=== PATIENT | female | born 1980 | race American Indian/Alaskan Native ===

== ENCOUNTER 2019-05-01 00:21 | Emergency (ER) | payer OTHER ==
[2019-05-01 01:01] LABS: Basophils % (Auto) 0.6 % (0.0-1.8); Eosinophils # (Auto) 0.1 K/mm3 (0.0-0.4); Eosinophils % (Auto) 0.9 % (0.0-4.3); Hematocrit 39.8 % (30.3-42.9); Hemoglobin 13.3 gm/dl (10.1-14.3); Lymphocytes # (Auto) 3.6 K/mm3 (1.2-5.4); Lymphocytes % (Auto) 54.1 % (13.4-35.0); Mean Corpuscular HGB Conc 33 % (30-34); Mean Corpuscular Volume 81 fl (79-97); Monocytes # (Auto) 0.5 K/mm3 (0.0-0.8); Monocytes % (Auto) 7.9 % (0.0-7.3); Platelet Count 268 K/mm3 (140-440); Red Blood Count 4.94 M/mm3 (3.65-5.03); Red Cell Distribution Width 13.6 % (13.2-15.2)
[2019-05-01 01:18] LABS: BUN/Creatinine Ratio 18; Blood Urea Nitrogen 7 mg/dL (7-17); Calcium 9.7 mg/dL (8.4-10.2); Hemolysis Index 25
[2019-05-01] MEDS ORDERED: NACL 0.9% 1000 ML 1,000 ML IV ONE (02:55)
[2019-05-01] MEDS ORDERED: MORPHINE IV ONE (02:55)
--- NOTE | 2019-05-01 04:10 | Emergency Department Report ---
<TASHI BANKS - Last Filed: 05/01/19 06:32> ED GI Bleed HPI - General Chief complaint: GI Bleed Stated complaint: 5 DAYS DIZZINESS BLURRED VISION SHAKING Time Seen by Provider: 05/01/19 02:54 Source: patient, family Mode of arrival: Ambulatory Limitations: No Limitations - History of Present Illness Initial comments: 39-year-old -[place] female presents to the emergency room for dizziness and rectal bleeding rectal pain fatigue 5 days. Patient reports that 2 months ago she started shaking and 2 weeks ago she started falling down patient reports that she has a history of giant cell sacral tumor removed in 2014 now she is having rectal bleeding and rectal pain. Patient admits to nausea vomiting reports pressure in the lower abdomen and back patient pushes took 800 mg of ibuprofen 2 days ago twice that day. She's tried taken Tylenol which she reports is not helping with her pain. Patient states that she sees black spots. MD complaint: melena Onset/Timin -: days(s) Radiation: LLQ, RLQ, suprapubic Severity scale (0 -10): 10 Quality: other (pressure) Consistency: constant Improves with: none Worsens with: bowel movement Context: other (giant cell sacral tumor) Associated Symptoms: abdominal pain, nausea, vomiting, malaise. denies: fever/chills Treatments Prior to Arrival: none - Related Data Previous Rx's Medication Instructions Recorded Last Taken Type Acetaminophen/Codeine [Tylenol 1 tab PO Q4HR PRN #12 tablet 05/01/19 Unknown Rx /Codeine # 3 tab] Nitrofurantoin [place]/M-Cryst 100 mg PO Q12HR #20 capsule 05/01/19 Unknown Rx [Macrobid CAP] Allergies Allergy/AdvReac Type Severity Reaction Status Date / Time No Known Allergies Allergy Unverified 05/01/19 00:28 ED Review of Systems Constitutional: denies: chills, fever Eyes: denies: eye pain, eye discharge, vision change ENT: denies: ear pain, throat pain Respiratory: denies: cough, shortness of breath, wheezing Gastrointestinal: abdominal pain, nausea, vomiting, hematochezia Genitourinary: denies: urgency, dysuria, discharge Musculoskeletal: back pain Neurological: headache ED Past Medical Hx - Past Medical History Previous Medical History?: Yes Additional medical history: ankolitis spondolitis - Surgical History Past Surgical History?: Yes Additional Surgical History: colonoscopy - Social History Smoking Status: Never Smoker Substance Use Type: Alcohol - Medications Home Medications: Home Medications Medication Instructions Recorded Confirmed Last Taken Type Acetaminophen/Codeine [Tylenol 1 tab PO Q4HR PRN #12 tablet 05/01/19 Unknown Rx /Codeine # 3 tab] Nitrofurantoin [place]/M-Cryst 100 mg PO Q12HR #20 capsule 05/01/19 Unknown Rx [Macrobid CAP] ED Physical Exam - General Limitations: No Limitations General appearance: alert, in no apparent distress - Head Head exam: Present: atraumatic, normocephalic - Eye Eye exam: Present: EOMI - ENT ENT exam: Present: mucous membranes moist - Neck Neck exam: Present: normal inspection, full ROM - Respiratory Respiratory exam: Present: normal lung sounds bilaterally. Absent: respiratory distress - Cardiovascular Cardiovascular Exam: Present: normal rhythm, tachycardia. Absent: systolic murmur, diastolic murmur, rubs, gallop - GI/Abdominal GI/Abdominal exam: Present: soft, tenderness. Absent: distended - Rectal Rectal exam: Present: normal inspection, normal rectal tone, heme (+) stool - Extremities Exam Extremities exam: Present: normal inspection, full ROM - Back Exam Back exam: Present: normal inspection, full ROM - Neurological Exam Neurological exam: Present: alert, oriented X3 - Psychiatric Psychiatric exam: Present: normal affect, normal mood - Skin Skin exam: Present: warm, dry, intact, normal color. Absent: rash ED Medical Decision Making - Lab Data Result diagrams: 05/01/19 00:42 05/01/19 00:42 Laboratory Results - last 72 hr 05/01/19 05/01/19 05/01/19 00:42 00:42 00:42 WBC 6.7 RBC 4.94 Hgb 13.3 Hct 39.8 MCV 81 MCH 27 L MCHC 33 RDW 13.6 Plt Count 268 Lymph % (Auto) 54.1 H [place] % (Auto) 7.9 H Eos % (Auto) 0.9 Baso % (Auto) 0.6 Lymph # 3.6 [place] # 0.5 Eos # 0.1 Baso # 0.0 Seg Neutrophils % 36.5 L Seg Neutrophils # 2.4 Sodium 137 Potassium 3.8 Chloride 106.1 Carbon Dioxide 18 L Anion Gap 17 BUN 7 Creatinine 0.4 L Estimated GFR > 60 BUN/Creatinine Ratio 18 Glucose 127 H Calcium 9.7 HCG, Qual Negative - Radiology Data Radiology results: report reviewed Patient: GLADYS BERNAL MR#: [id number] : 1980 Acct:[id number] Age/Sex: 39 / F ADM Date: 05/01/19 Loc: ED Attending Dr: Ordering Physician: BLANCHE MUJICA Date of Service: 05/01/19 Procedure(s): CT abdomen pelvis w con Accession Number(s): [id number] cc: BLANCHE MUJICA PROCEDURE: CT ABDOMEN PELVIS W CON TECHNIQUE: Computerized axial tomography of the abdomen and pelvis was performed after the IV injection of iodinated nonionic contrast. CT DOSE LENGTH PRODUCT: mGycm HISTORY: abd and rectal pain COMPARISONS: None . FINDINGS: Visualized lower thorax: No significant abnormality. Liver: Normal size and attenuation. Spleen: Normal size and attenuation. Gallbladder and biliary system: Normal. Pancreas: Normal. Adrenals: Normal. Kidneys: There are tiny stones in the right kidney. There are no ureteral stones. There is no hydronephrosis.. GI tract: There is no bowel obstruction, colitis or enteritis. There is no abel endicitis. . Lymph nodes and mesentery: Normal. Vasculature: Normal.. Bladder: Normal. Reproductive organs: Uterus is unremarkable. There are involuting cyst in the right ovary measuring up to 2 cm.. Peritoneum: There is minimal free pelvic fluid. There is no free air. There is no abscess or adenopathy.. Musculoskeletal structures: No significant abnormality. IMPRESSION: There are tiny stones in the right kidney. There are no ureteral stones. There is no hydronephrosis.. There is no bowel obstruction, colitis or enteritis. There is no appendicitis. . Uterus is unremarkable. There are involuting cyst in the right ovary measuring up to 2 cm.. There is minimal free pelvic fluid. There is no free air. There is no abscess or adenopathy.. . This document is electronically signed by Ronnie Barton MD., May 01 2019 04:45:04 AM ET Transcribed By: CO Dictated By: RONNIE BARTON MD Electronically Authenticated By: RONNIE BARTON MD Signed Date/Time: 05/01/19 0447 DD/ 4 TD/TT: 05/01/19254 - Medical Decision Making A 9-year-old female comes in for rectal pressure and lower abdomen pressure dizziness nauseated and headache for 5 days. Patient was given a CT with contrast, labs CBC, CMP, TSH, urinalysis have been ordered. Patient's had an IV fluids with normal saline she's had morphine 4 mg IV and then Dilaudid 0.5 mg IV with Zofran. Patient being treated for urinary tract infection discharged on antibiotics which have Macrobid. Patient is to follow-up with her primary care provider listed in her discharge summary. ED Disposition Clinical Impression: UTI (urinary tract infection) Qualifiers: Urinary tract infection type: acute cystitis Disposition: TO HOME OR SELFCARE Is pt being admited?: No Does the pt Need Aspirin: No Condition: Stable Instructions: Urinary Tract Infection in Women (ED) Additional Instructions: Complete your antibiotics as prescribed. Pain medication as needed. Increase her water intake of days she as tolerated. Prescriptions: Nitrofurantoin [place]/M-Cryst [Macrobid CAP] 100 mg PO Q12HR #20 capsule Acetaminophen/Codeine [Tylenol /Codeine # 3 tab] 1 tab PO Q4HR PRN #12 tablet PRN Reason: Pain Referrals: NEVAEH ACE MD [Primary Care Provider] - 3-5 Days Forms: Accompanied Note, Work/School Release Form(ED) <VIRIDIANA CERON - Last Filed: 05/02/19 05:58> ED Review of Systems ROS: Stated complaint: 5 DAYS DIZZINESS BLURRED VISION SHAKING Other details as noted in HPI ED Course Vital Signs 05/01/19 05/01/19 05/01/19 00:29 03:20 03:30 Temperature 98.4 F Pulse Rate 141 H Respiratory 20 18 18 Rate Blood Pressure 152/87 Blood Pressure [Left] O2 Sat by Pulse 100 98 Oximetry 05/01/19 05/01/19 05/01/19 03:50 05:30 05:45 Temperature 98.7 F Pulse Rate 88 Respiratory 18 18 18 Rate Blood Pressure Blood Pressure 142/76 [Left] O2 Sat by Pulse 100 Oximetry 05/01/19 06:15 Temperature Pulse Rate Respiratory 18 Rate Blood Pressure Blood Pressure [Left] O2 Sat by Pulse Oximetry - Reevaluation(s) Reevaluation #1: 05/02/19 05:57 pt will need f/u for thyroid workup. Low TSH suggestive of hyperthyroidism. Instructed provider to contact patient to inform her of results and importance for follow-up. No signs of thyroid storm based on patient's repeat and predischarge vitals. ED Medical Decision Making - Lab Data Result diagrams: 05/01/19 00:42 05/01/19 00:42 Critical care attestation.: If time is entered above; I have spent that time in minutes in the direct care of this critically ill patient, excluding procedure time. ED Disposition Is pt being admited?: No
--- NOTE | 2019-05-01 04:47 | Cat Scan Report ---
PROCEDURE: CT ABDOMEN PELVIS W CON TECHNIQUE: Computerized axial tomography of the abdomen and pelvis was performed after the IV inject ion of iodinated nonionic contrast. CT DOSE LENGTH PRODUCT: mGycm HISTORY: abd and rectal pain COMPARISONS: None . FINDINGS: Visualized lower thorax: No significant abnormality. Liver: Normal size and attenuation. Spleen: Normal size and attenuation. Gallbladder and biliary system: Normal. Pancreas: Normal. Adrenals: Normal. Kidneys: There are tiny stones in the right kidney. There are no ureteral stones. There is no hydrone phrosis.. GI tract: There is no bowel obstruction, colitis or enteritis. There is no appendicitis. . Lymph nodes and mesentery: Normal. Vasculature: Normal.. Bladder: Normal. Reproductive organs: Uterus is unremarkable. There are involuting cyst in the right ovary measuring u p to 2 cm.. Peritoneum: There is minimal free pelvic fluid. There is no free air. There is no abscess or adenopat hy.. Musculoskeletal structures: No significant abnormality. IMPRESSION: There are tiny stones in the right kidney. There are no ureteral stones. There is no hydronephrosis.. There is no bowel obstruction, colitis or enteritis. There is no appendicitis. . Uterus is unremarkable. There are involuting cyst in the right ovary measuring up to 2 cm.. There is minimal free pelvic fluid. There is no free air. There is no abscess or adenopathy.. . This document is electronically signed by Sammy Way MD., May 01 2019 04:45:04 TALA ET
[2019-05-01] MEDS ORDERED: ZOFRAN IM ONE (04:55)
[2019-05-01] MEDS ORDERED: ZOFRAN IV ONE (04:56)
[2019-05-01] MEDS ORDERED: DILAUDID IV ONE (04:56)
[2019-05-01 06:05] LABS: Bilirubin,Urine NEG (Negative); Blood,Urine NEG (Negative); Color,Urine Yellow (Yellow); Mucus,Urine FEW /HPF; Protein,Urine <15 mg/dL mg/dL (Negative); Urobilinogen,Urine < 2.0 mg/dL (<2.0)
[2019-05-01 06:31] VITALS: BP 142/76
== END 2019-05-01 06:45 | disposition home or self-care (01) ==
LOC: ED 00:21
DX: N39.0 Urinary tract infection, site not specified (principal); R11.2 Nausea with vomiting, unspecified; R10.9 Unspecified abdominal pain
CPT/HCPCS: 36415; 74177; 80048; 81001; 82271; 84443; 84703; 85025; 87086; 93005; 93010; 96361; 96374; 96375; 99284; J1170; J2270; J2405; J7030; Q9967

== ENCOUNTER 2019-06-08 02:19 | Inpatient (IN) | payer OTHER ==
[2019-06-08] MEDS ORDERED: BREVIBLOC IV ONE ×2 (02:46→03:00)
[2019-06-08] MEDS ORDERED: BREVIBLOC DRIP 2.5GM/250ML 2.5 GM/250 ML BAG IV ONE (02:46)
[2019-06-08] MEDS ORDERED: ZOFRAN IV ONE ×2 (02:48→22:01)
[2019-06-08] MEDS ORDERED: TAPAZOLE PO ONE (02:49)
[2019-06-08] MEDS ORDERED: NACL 0.9% 1000 ML 1,000 ML IV ONE (02:50)
--- NOTE | 2019-06-08 02:58 | Emergency Department Report ---
ED General Adult HPI - General Chief complaint: Chest Pain Stated complaint: CHEST PAIN/DIZZINESS Time Seen by Provider: 06/08/19 02:39 Source: patient, old records reviewed Mode of arrival: Ambulatory Limitations: No Limitations - History of Present Illness Initial comments: 39-year-old female with a past medical history of asthma and ankylosis spondyl itis presents to the hospital complains of 5 days of generalized weakness, vomiting, diarrhea, chest pressure, shortness of breath, dizziness, and blurred vision. Previous medical records reviewed and patient was here for similar complaints and in April and felt better with ED treatment left prior to to TSH result. Patient was then called and told that her TSH was low at that time he would needed outpatient workup for hyperthyroidism. Patient was unable to follow up for further testing or treatment. She also complains of some swelling to the neck. Patient is tremulous with significant tachycardia during my initial evaluation. Severity scale (0 -10): 10 - Related Data Home Medications Medication Instructions Recorded Confirmed Last Taken No Known Home Medications [No 06/08/19 06/08/19 Unknown Reported Home Medications] Allergies Allergy/AdvReac Type Severity Reaction Status Date / Time No Known Allergies Allergy Verified 06/08/19 02:27 ED Review of Systems ROS: Stated complaint: CHEST PAIN/DIZZINESS Other details as noted in HPI Comment: All other systems reviewed and negative ED Past Medical Hx - Past Medical History Previous Medical History?: Yes Hx Asthma: Yes Additional medical history: ankolitis spondolitis - Surgical History Past Surgical History?: Yes Additional Surgical History: colonoscopy - Social History Smoking Status: Never Smoker Substance Use Type: Alcohol - Medications Home Medications: Home Medications Medication Instructions Recorded Confirmed Last Taken Type No Known Home Medications [No 06/08/19 06/08/19 Unknown History Reported Home Medications] ED Physical Exam - General Limitations: No Limitations - Other Other exam information: General: No limitations Head exam: Atraumatic, normocephalic Eyes exam: Normal appearance, pupils equal reactive to light, no proptosis ENT: Moist mucous membrane, normal oropharynx Neck exam: Normal inspection, thyromegaly Respiratory exam: Clear to auscultation bilateral, no wheezes, rales, crackles Cardiovascular: tachycardic regular rhythm Abdomen: Soft, nondistended, and nontender, with normal bowel sounds, no rebound, or guarding Extremity: Full range of motion normal inspection no deformity Back: Normal Inspection, full range of motion, no tenderness Neurologic: Alert, oriented x3, cranial nerves intact, no motor or sensory deficit Psychiatric: normal affect, normal mood Skin: Warm, dry, intact ED Course Vital Signs 06/08/19 06/08/19 06/08/19 02:27 02:40 02:45 Temperature 97.9 F Pulse Rate 155 H 169 H 156 H Respiratory 18 30 H 26 H Rate Blood Pressure 168/77 Blood Pressure 141/84 [Right] O2 Sat by Pulse 99 Oximetry 06/08/19 06/08/19 06/08/19 03:00 03:16 03:30 Temperature Pulse Rate 140 H 105 H 99 H Respiratory 27 H 22 55 H Rate Blood Pressure 168/77 168/77 149/77 Blood Pressure [Right] O2 Sat by Pulse 100 100 Oximetry 06/08/19 06/08/19 06/08/19 03:46 04:00 04:16 Temperature Pulse Rate 105 H 101 H Respiratory 21 49 H Rate Blood Pressure 130/83 140/88 147/97 Blood Pressure [Right] O2 Sat by Pulse 99 99 98 Oximetry 06/08/19 06/08/19 06/08/19 04:30 05:00 05:16 Temperature Pulse Rate 99 H 93 H 92 H Respiratory 34 H 15 20 Rate Blood Pressure 147/97 150/88 122/76 Blood Pressure [Right] O2 Sat by Pulse 99 97 99 Oximetry 06/08/19 05:30 Temperature Pulse Rate 95 H Respiratory 13 Rate Blood Pressure 126/76 Blood Pressure [Right] O2 Sat by Pulse 99 Oximetry ED Medical Decision Making - Lab Data Result diagrams: 06/08/19 02:54 06/08/19 02:54 Lab Results 06/08/19 06/08/19 06/08/19 Range/Units 02:54 02:54 02:54 WBC 5.2 (4.5-11.0) K/mm3 RBC 4.88 (3.65-5.03) M/mm3 Hgb 12.7 (10.1-14.3) gm/dl Hct 38.9 (30.3-42.9) % MCV 80 (79-97) fl MCH 26 L (28-32) pg MCHC 33 (30-34) % RDW 13.3 (13.2-15.2) % Plt Count 261 (140-440) K/mm3 Lymph % (Auto) 45.4 H (13.4-35.0) % [place] % (Auto) 11.1 H (0.0-7.3) % Eos % (Auto) 0.2 (0.0-4.3) % Baso % (Auto) 0.1 (0.0-1.8) % Lymph # 2.4 (1.2-5.4) K/mm3 [place] # 0.6 (0.0-0.8) K/mm3 Eos # 0.0 (0.0-0.4) K/mm3 Baso # 0.0 (0.0-0.1) K/mm3 Seg Neutrophils % 43.2 (40.0-70.0) % Seg Neutrophils # 2.3 (1.8-7.7) K/mm3 PT (12.2-14.9) Sec. INR (0.87-1.13) APTT (24.2-36.6) Sec. Sodium 139 (137-145) mmol/L Potassium 3.8 (3.6-5.0) mmol/L Chloride 106.6 (98-107) mmol/L Carbon Dioxide 18 L (22-30) mmol/L Anion Gap 18 mmol/L BUN 7 (7-17) mg/dL Creatinine 0.5 L (0.7-1.2) mg/dL Estimated GFR > 60 ml/min BUN/Creatinine Ratio 14 % Glucose 106 H (65-100) mg/dL Calcium 9.7 (8.4-10.2) mg/dL Total Bilirubin (0.1-1.2) mg/dL Direct Bilirubin (0-0.2) mg/dL Indirect Bilirubin mg/dL AST (5-40) units/L ALT (7-56) units/L Alkaline Phosphatase (35-129) units/L Troponin T < 0.010 (0.00-0.029) ng/mL Total Protein (6.3-8.2) g/dL Albumin (3.9-5) g/dL Albumin/Globulin Ratio % TSH (0.270-4.200) mlU/mL Free T4 (0.76-1.46) ng/dL HCG, Qual Negative (Negative) 06/08/19 06/08/19 06/08/19 Range/Units 02:54 02:54 02:54 WBC (4.5-11.0) K/mm3 RBC (3.65-5.03) M/mm3 Hgb (10.1-14.3) gm/dl Hct (30.3-42.9) % MCV (79-97) fl MCH (28-32) pg MCHC (30-34) % RDW (13.2-15.2) % Plt Count (140-440) K/mm3 Lymph % (Auto) (13.4-35.0) % [place] % (Auto) (0.0-7.3) % Eos % (Auto) (0.0-4.3) % Baso % (Auto) (0.0-1.8) % Lymph # (1.2-5.4) K/mm3 [place] # (0.0-0.8) K/mm3 Eos # (0.0-0.4) K/mm3 Baso # (0.0-0.1) K/mm3 Seg Neutrophils % (40.0-70.0) % Seg Neutrophils # (1.8-7.7) K/mm3 PT 14.8 (12.2-14.9) Sec. INR 1.19 H (0.87-1.13) APTT 27.4 (24.2-36.6) Sec. Sodium (137-145) mmol/L Potassium (3.6-5.0) mmol/L Chloride (98-107) mmol/L Carbon Dioxide (22-30) mmol/L Anion Gap mmol/L BUN (7-17) mg/dL Creatinine (0.7-1.2) mg/dL Estimated GFR ml/min BUN/Creatinine Ratio % Glucose (65-100) mg/dL Calcium (8.4-10.2) mg/dL Total Bilirubin 0.40 (0.1-1.2) mg/dL Direct Bilirubin < 0.2 (0-0.2) mg/dL Indirect Bilirubin 0.2 mg/dL AST 21 (5-40) units/L ALT 21 (7-56) units/L Alkaline Phosphatase 75 (35-129) units/L Troponin T (0.00-0.029) ng/mL Total Protein 7.5 (6.3-8.2) g/dL Albumin 3.6 L (3.9-5) g/dL Albumin/Globulin Ratio 0.9 % TSH < 0.005 L (0.270-4.200) mlU/mL Free T4 5.72 H (0.76-1.46) ng/dL HCG, Qual (Negative) - EKG Data -: EKG Interpreted by Me EKG shows normal: sinus rhythm, axis (qrs 33), QRS complexes (qrsd 71), ST-T waves (no stemi) Rate: tachycardia (145) - Radiology Data Radiology results: report reviewed CHEST 1 VIEW INDICATION: Chest Pain. COMPARISON: One day prior. FINDINGS: Support devices: Unchanged. Heart: Stable. Lungs/Pleura: No acute pulmonary or pleural findings. IMPRESSION: 1. No significant change. - Medical Decision Making Medications for thyroid storm initiated prior to lab results today based on patient's presentation and the fact that she had a low TSH during her ED visit in April. Esmolol drip, methimazole by mouth, hydrocortisone IV were all provided in the ED as well as 1 L of normal saline. Heart rate is improving. Labs confirmed thyrotoxicosis. Patient will require ICU admission. Hospitalist informed - Differential Diagnosis thyroid storm, dehyration, pulm embolism Critical Care Time: Yes Critical care time in (mins) excluding proc time.: 35 Critical care attestation.: If time is entered above; I have spent that time in minutes in the direct care of this critically ill patient, excluding procedure time. ED Disposition Clinical Impression: Thyroid storm Disposition: 09 OP ADMIT IP TO THIS HOSP Is pt being admited?: Yes Does the pt Need Aspirin: No Condition: Serious Time of Disposition: 04:06 (Dr Melgar/hospitalist)
[2019-06-08 03:07] LABS: Basophils % (Auto) 0.1 % (0.0-1.8); Eosinophils % (Auto) 0.2 % (0.0-4.3); Hematocrit 38.9 % (30.3-42.9); Hemoglobin 12.7 gm/dl (10.1-14.3); Lymphocytes # (Auto) 2.4 K/mm3 (1.2-5.4); Lymphocytes % (Auto) 45.4 % (13.4-35.0); Mean Corpuscular HGB Conc 33 % (30-34); Mean Corpuscular Volume 80 fl (79-97); Monocytes # (Auto) 0.6 K/mm3 (0.0-0.8); Monocytes % (Auto) 11.1 % (0.0-7.3); Platelet Count 261 K/mm3 (140-440); Red Blood Count 4.88 M/mm3 (3.65-5.03); Red Cell Distribution Width 13.3 % (13.2-15.2)
[2019-06-08 03:17] LABS: INR 1.19 (0.87-1.13)
[2019-06-08 03:18] LABS: Partial Thromboplastin Time 27.4 Sec. (24.2-36.6)
[2019-06-08 03:30] LABS: BUN/Creatinine Ratio 14; Blood Urea Nitrogen 7 mg/dL (7-17); Calcium 9.7 mg/dL (8.4-10.2); Hemolysis Index 20
[2019-06-08 03:34] LABS: Alanine Aminotransferase 21 units/L (7-56); Albumin 3.6 g/dL (3.9-5)
[2019-06-08 03:44] LABS: Bilirubin,Direct < 0.2 mg/dL (0-0.2)
[2019-06-08 03:52] LABS: Free T4 (Free Thyroxine) 5.72 ng/dL (0.76-1.46)
--- NOTE | 2019-06-08 03:53 | XRay Report ---
CHEST 1 VIEW INDICATION: Chest Pain. COMPARISON: One day prior. FINDINGS: Support devices: Unchanged. Heart: Stable. Lungs/Pleura: No acute pulmonary or pleural findings. IMPRESSION: 1. No significant change. Signer Name: Kirit Humphreys MD Signed: 06/08/2019 3:48 AM Workstation Name: [id number]
[2019-06-08] MEDS ORDERED: TYLENOL PO PRN (04:42)
[2019-06-08] MEDS ORDERED: SODIUM CHLORIDE FLUSH SYRINGE 10 ML IV PRN (04:42)
--- NOTE | 2019-06-08 04:53 | History and Physical Report ---
History of Present Illness Date of examination: 06/08/19 History of present illness: 39 -year-old woman with a history of ankylosing spondylitis, asthma comes to emergency room with complaints of nausea and vomiting 5 days. Also complaining of blurred vision, pain in her neck, recent of her heart, tremors and shortness of breath, increase stooling. Her symptoms started 2 months ago when she developed tremors, admitted to 57 pounds weight loss over 2 months. Seen in emergency room in April, before her tests resulted. She was called with the results. She followed in a clinic, was told he had to pay $50 for evaluation. She refused care because she didnt have enough money. Review of systems Constitutional: no weight loss, chills, fever Ears, eyes, nose, mouth and throat: no nasal congestion, no nasal discharge, no sinus pressure, no vision change, no red eye. Neck: No neck pain or rigidity. Cardiovascular: no chest pain Respiratory: no cough, shortness of breath Gastrointestinal: no hematochezia, abdominal pain Genitourinary : no frequency , no hematuria Musculoskeletal: no joint swelling or muscle ache Integumentary: no rash, no pruritis Neurological: no parathesias, no focal weakness Endocrine: no cold or heat intolerance, no polyuria or polydipsia Hematologic/Lymphatic: no easy bruising, no easy bleeding, no gland swelling Allergic/Immunologic: no urticaria, no angioedema. PAST MEDICAL HISTORY:ankylosing spondylitis, asthma PAST SURGICAL HISTORY:None SOCIAL HISTORY: Social alcohol, tobacco, no drugs FAMILY HISTORY: Hypertension Medications and Allergies Allergies Allergy/AdvReac Type Severity Reaction Status Date / Time No Known Allergies Allergy Verified 06/08/19 02:27 Home Medications Medication Instructions Recorded Confirmed Last Taken Type No Known Home Medications [No 06/08/19 06/08/19 Unknown History Reported Home Medications] Active Meds: Active Medications Acetaminophen (Tylenol) 650 mg PO Q4H PRN PRN Reason: Pain MILD(1-3)/Fever >100.5/[place]ICKMAN Enoxaparin Sodium (Lovenox) 30 mg SUB-Q QDAY HERB Hydrocortisone Sodium Succinate (Solu-Cortef) 100 mg IV Q6H HERB Esmolol HCl (Brevibloc Drip 2.5gm/250ml) 2.5 gm in 250 mls @ 29.61 mls/hr IV TITR ONE; Protocol Stop: 06/08/19 11:12 Last Titration: 06/08/19 04:18 Dose: 100 mcg/kg/min, 59.22 mls/hr Documented by: Sodium Chloride (Nacl 0.45% 1000 Ml) 1,000 mls @ 125 mls/hr IV DIRECT HERB Ondansetron HCl (Zofran) 4 mg IV Q4H PRN PRN Reason: Nausea And Vomiting Sodium Chloride (Sodium Chloride Flush Syringe 10 Ml) 10 ml IV BID HERB Sodium Chloride (Sodium Chloride Flush Syringe 10 Ml) 10 ml IV PRN PRN PRN Reason: LINE FLUSH Exam - Physical Exam Narrative exam: General Apperance: The patient lying in bed, breathing comfortable HEENT: Normocephalic, atraumatic. Pupils equally round and reactive to light, EOMI, no sclericterus or JVD or thyromegaly or nodule. , no carotid bruit, mucous membranes dry, no exudate or erythema Heart: S1-S2, regular is rhythm Lungs: Clear to auscultation bilaterally, breathing comfortable Abdomen: Positive bowel sounds, soft, nontender, nondistended, no organomegaly Extremities: + trmors, No edema cyanosis clubbing Skin: no rash, nodule, warm and dry Neuro: cranial nerves 2-12 intact, speech is fluent, motor/sensory intact - Constitutional Vitals: Temp Pulse Resp BP Pulse Ox 97.9 F 99 H 34 H 147/97 99 06/08/19 02:27 06/08/19 04:30 06/08/19 04:30 06/08/19 04:30 06/08/19 04:30 Results - Labs CBC & Chem 7: 06/09/19 05:34 06/09/19 05:34 Labs: Abnormal lab results 06/08/19 06/08/19 06/08/19 Range/Units 02:54 02:54 02:54 MCH 26 L (28-32) pg Lymph % (Auto) 45.4 H (13.4-35.0) % [place] % (Auto) 11.1 H (0.0-7.3) % INR 1.19 H (0.87-1.13) Carbon Dioxide 18 L (22-30) mmol/L Creatinine 0.5 L (0.7-1.2) mg/dL Glucose 106 H (65-100) mg/dL Albumin (3.9-5) g/dL TSH (0.270-4.200) mlU/mL Free T4 (0.76-1.46) ng/dL 06/08/19 06/08/19 Range/Units 02:54 02:54 MCH (28-32) pg Lymph % (Auto) (13.4-35.0) % [place] % (Auto) (0.0-7.3) % INR (0.87-1.13) Carbon Dioxide (22-30) mmol/L Creatinine (0.7-1.2) mg/dL Glucose (65-100) mg/dL Albumin 3.6 L (3.9-5) g/dL TSH < 0.005 L (0.270-4.200) mlU/mL Free T4 5.72 H (0.76-1.46) ng/dL - Imaging and Cardiology EKG: image reviewed Chest x-ray: report reviewed Assessment and Plan Assessment Thyroid Storm Ankylosing spondylitis Asthma Plan Admit to medicine Contine esmolol drip, IV fluid Start high dose IV steroids, PTU Check US thyroid DVT prophalaxis
[2019-06-08] MEDS: ZOFRAN IV PRN (06:18)
--- NOTE | 2019-06-08 06:47 | Ultrasound Report ---
ULTRASOUND THYROID INDICATION / CLINICAL INFORMATION: thyroid storm. COMPARISON: None available. FINDINGS: RIGHT LOBE: Size = 5.2 x 1.9 x 2.1 cm. - Echogenicity: Heterogeneous - Vascularity: Mildly increased - Nodules < 1 cm: There is a 9 mm heterogeneously hypoechoic nodule in the lower pole. - Nodules >= 1 cm or Suspicious Nodules: 1, see below. NODULE #1 Location: right mid Size: 1.7 x 1.3 x 0.8 cm Composition: Solid = 2 points Echogenicity: Hypoechoic = 2 points Shape: Fcctq-tsvr-pivy = 0 points Margin: Ill-defined = 0 points Echogenic Foci: None = 0 points ACR TI-RADS Score = 4. ACR TI-RADS Category TR4 (4-6 points). Recommendation: Follow-up US in 1 year. LEFT LOBE: Size = 4.6 x 2.0 x 2.6 cm. - Echogenicity: Heterogeneous - Vascularity: Mildly increased - Nodules < 1 cm: None. - Nodules >= 1 cm or Suspicious Nodules: None. ISTHMUS: No significant abnormality. Thickness = 0.5 cm. - Nodules < 1 cm: None. - Nodules >= 1 cm or Suspicious Nodules: There are 2 hypoechoic nodules, see below for details of the larger. NODULE #2 Location: left lower Size: 2.2 x 1.6 x 1.0 cm Composition: Solid = 2 points Echogenicity: Hypoechoic = 2 points Shape: Qkgyv-ayrb-iuzl = 0 points Margin: Ill-defined = 0 points Echogenic Foci: None = 0 points ACR TI-RADS Score = 4. ACR TI-RADS Category TR4 (4-6 points). Recommendation: FNA. LYMPH NODES: No abnormal lymph nodes. PARATHYROID GLANDS: No abnormal parathyroid gland. ADDITIONAL FINDINGS: None. IMPRESSION: 1. Thyroid is heterogeneous and mildly hypervascular. 2. There are 2 TIRADS 4 lesions, as above. Given its size, per recommendations, the larger lesion keith uld be biopsied. Repeat exam after resolution of thyroid storm is recommended, prior to biopsy. Note: Nodule size based on mean (average) size of 3 dimensions. Note: Nodules < 1 cm do not typically require follow-up or FNA unless there are suspicious features ( CHEMA, 2015) ACR TI-RADS Thyroid Nodule Recommendations TI-RADS 1 (0 points) -- Benign. No FNA or follow-up. TI-RADS 2 (1-2 points) -- Not suspicious. No FNA or follow-up. TI-RADS 3 (3 points) -- Mildly suspicious. Follow up in 1 year if 1.5 cm. FNA if 2.5 cm. TI-RADS 4 (4-6 points) -- Moderately suspicious. Follow up in 1 year if 1.0 cm. FNA if 1.5 cm. TI-RADS 5 (7+ points) -- Highly suspicious. Follow up in 1 year if 0.5 cm. FNA if 1.0 cm. Signer Name: Kirit Humphreys MD Signed: 06/08/2019 6:43 AM Workstation Name: [id number]
--- NOTE | 2019-06-08 06:59 | Progress Note ---
Assessment and Plan Assessment and plan: Admitted this morning, still in ED 22 Patient is a 39 yo woman with a history of asthma, ankylosis spondylitis and elevated TSH found here in May 01, 2019 but no outpatient follow up done who presented to [facility] ED with similar complaints as April ED visit such as generalized weakness, vomiting, diarrhea, chest pressure, shortness of breath, dizziness, and blurred vision. Previous medical records reviewed and patient was here for similar complaints and in April and felt better with ED treatment left prior to to TSH result. Patient was then called and told that her TSH was low at that time he would needed outpatient workup for hyperthyroidism. Patient was unable to follow up for further testing or treatment. She also complains of some swelling to the neck. Patient is tremulous with significant tachycardia during my initial evaluation. TSH <0.005 and Free T4 5.72 * ULTRASOUND THYROID INDICATION / CLINICAL INFORMATION: thyroid storm. COMPARISON: None available. FINDINGS: RIGHT LOBE: Size = 5.2 x 1.9 x 2.1 cm. - Echogenicity: Heterogeneous - Vascularity: Mildly increased - Nodules < 1 cm: There is a 9 mm heterogeneously hypoechoic nodule in the lower pole. - Nodules >= 1 cm or Suspicious Nodules: 1, see below. NODULE #1 Location: right mid Size: 1.7 x 1.3 x 0.8 cm Composition: Solid = 2 points Echogenicity: Hypoechoic = 2 points Shape: Xcbzq-pmqn-jjcm = 0 points Margin: Ill-defined = 0 points Echogenic Foci: None = 0 points ACR TI-RADS Score = 4. ACR TI-RADS Category TR4 (4-6 points). Recommendation: Follow-up US in 1 year. LEFT LOBE: Size = 4.6 x 2.0 x 2.6 cm. - Echogenicity: Heterogeneous - Vascularity: Mildly increased - Nodules < 1 cm: None. - Nodules >= 1 cm or Suspicious Nodules: None. ISTHMUS: No significant abnormality. Thickness = 0.5 cm. - Nodules < 1 cm: None. - Nodules >= 1 cm or Suspicious Nodules: There are 2 hypoechoic nodules, see below for details of the larger. NODULE #2 Location: left lower Size: 2.2 x 1.6 x 1.0 cm Composition: Solid = 2 points Echogenicity: Hypoechoic = 2 points Shape: Iweff-tfil-wgrr = 0 points Margin: Ill-defined = 0 points Echogenic Foci: None = 0 points ACR TI-RADS Score = 4. ACR TI-RADS Category TR4 (4-6 points). Recommendation: FNA. LYMPH NODES: No abnormal lymph nodes. PARATHYROID GLANDS: No abnormal parathyroid gland. ADDITIONAL FINDINGS: None. IMPRESSION: 1. Thyroid is heterogeneous and mildly hypervascular. 2. There are 2 TIRADS 4 lesions, as above. Given its size, per recommendations, the larger lesion should be biopsied. Repeat exam after resolution of thyroid storm is recommended, prior to biopsy. Note: Nodule size based on mean (average) size of 3 dimensions. Note: Nodules < 1 cm do not typically require follow-up or FNA unless there are suspicious features (CHEMA, 2015) ACR TI-RADS Thyroid Nodule Recommendations TI- RADS 1 (0 points) -- Benign. No FNA or follow-up. TI-RADS 2 (1-2 points) -- Not suspicious. No FNA or follow-up. TI-RADS 3 (3 points) -- Mildly suspicious. Follow up in 1 year if 1.5 cm. FNA if 2.5 cm. TI-RADS 4 (4-6 poin ts) -- Moderately suspicious. Follow up in 1 year if 1.0 cm. FNA if 1.5 cm. TI-RADS 5 (7+ points) -- Highly suspicious. Follow up in 1 year if 0.5 cm. FNA if 1.0 cm. Signer Name: Kirit Humphreys MD Signed: 06/08/2019 6:43 AM Workstation Name: [id number] ([id number] Transcribed By: MARCELA Dictated By: Kirit Humphreys MD El ectronically Authenticated By: Kirit Humphreys MD Signed Date/Time: 06/08/19 0643 * pCXR IMPRESSION: 1. No significant change. Hyperthyroidism, was diagnosis with Thyroid Storm: Endocrinology is not available here, so I called [facility] [phone] spoke with Sami for Endo co nsult. Sami called me back with [facility] Dr. Wolf. She recommends tapezole 20mg po bid, no steroid at this time, free t4 daily, RAIU and thyroid antibodies and outpatient Endocrinology referral. RAIU needs to be 5 days off tapezole or PTU. Stop Esmolol drip Thyroid nodules, needs BX under the care of [facility] Ankylosing spondylitis Asthma prolonged inpatient services 35 minutes History Interval history: Patient was seen and examined. Follow-up on current diagnosis Hyperthyroidism. No overnight events reported to me. Patient denies any chest pain, shortness breath, nausea/vomiting or severe headaches. Imaging, nursing note, chart, labs and old chart reviewed. Discussed with patient. Hospitalist Physical - Physical exam Narrative exam: Gen: WDWN, NAD, Awake, Alert, Orientated HEENT: NCAT, EOMI, PERRL, OP Clear Neck: supple, no adenopathy, no thyromegaly, no JVD CVS/Heart: RRR, normal S1S2, pulses present bilaterally Chest/Lungs: CTA B, Symmetrical chest expansion, good air entry bilaterally GI/Abdomen: soft, NTND, good bowel sounds, no guarding or rebound /Bladder: no suprapubic tenderness, no CVA or paraspinal tenderness Extermity/Skin: no c/c/e, no obvious rash MSK: FROM x 4 Neuro: CN 2-12 grossly intact, no new focal deficits Psych: calm - Constitutional Vitals: Temp Pulse Resp BP Pulse Ox 97.9 F 84 18 129/77 98 06/08/19 02:27 06/08/19 06:46 06/08/19 06:46 06/08/19 06:46 06/08/19 06:46 Results - Labs CBC & Chem 7: 06/08/19 02:54 06/08/19 02:54 Labs: Laboratory Last Values WBC 5.2 K/mm3 (4.5-11.0) 06/08/19 02:54 RBC 4.88 M/mm3 (3.65-5.03) 06/08/19 02:54 Hgb 12.7 gm/dl (10.1-14.3) 06/08/19 02:54 Hct 38.9 % (30.3-42.9) 06/08/19 02:54 MCV 80 fl (79-97) 06/08/19 02:54 MCH 26 pg (28-32) L 06/08/19 02:54 MCHC 33 % (30-34) 06/08/19 02:54 RDW 13.3 % (13.2-15.2) 06/08/19 02:54 Plt Count 261 K/mm3 (140-440) 06/08/19 02:54 Lymph % (Auto) 45.4 % (13.4-35.0) H 06/08/19 02:54 [place] % (Auto) 11.1 % (0.0-7.3) H 06/08/19 02:54 Eos % (Auto) 0.2 % (0.0-4.3) 06/08/19 02:54 Baso % (Auto) 0.1 % (0.0-1.8) 06/08/19 02:54 Lymph # 2.4 K/mm3 (1.2-5.4) 06/08/19 02:54 [place] # 0.6 K/mm3 (0.0-0.8) 06/08/19 02:54 Eos # 0.0 K/mm3 (0.0-0.4) 06/08/19 02:54 Baso # 0.0 K/mm3 (0.0-0.1) 06/08/19 02:54 Seg Neutrophils % 43.2 % (40.0-70.0) 06/08/19 02:54 Seg Neutrophils # 2.3 K/mm3 (1.8-7.7) 06/08/19 02:54 PT 14.8 Sec. (12.2-14.9) 06/08/19 02:54 INR 1.19 (0.87-1.13) H 06/08/19 02:54 APTT 27.4 Sec. (24.2-36.6) 06/08/19 02:54 Sodium 139 mmol/L (137-145) 06/08/19 02:54 Potassium 3.8 mmol/L (3.6-5.0) 06/08/19 02:54 Chloride 106.6 mmol/L (98-107) 06/08/19 02:54 Carbon Dioxide 18 mmol/L (22-30) L 06/08/19 02:54 18 mmol/L 06/08/19 02:54 BUN 7 mg/dL (7-17) 06/08/19 02:54 0.5 mg/dL (0.7-1.2) L 06/08/19 02:54 Estimated GFR > 60 ml/min 06/08/19 02:54 14 % 06/08/19 02:54 Glucose 106 mg/dL (65-100) H 06/08/19 02:54 Calcium 9.7 mg/dL (8.4-10.2) 06/08/19 02:54 0.40 mg/dL (0.1-1.2) 06/08/19 02:54 < 0.2 mg/dL (0-0.2) 06/08/19 02:54 0.2 mg/dL 06/08/19 02:54 AST 21 units/L (5-40) 06/08/19 02:54 ALT 21 units/L (7-56) 06/08/19 02:54 75 units/L (35-129) 06/08/19 02:54 < 0.010 ng/mL (0.00-0.029) 06/08/19 05:41 7.5 g/dL (6.3-8.2) 06/08/19 02:54 3.6 g/dL (3.9-5) L 06/08/19 02:54 0.9 % 06/08/19 02:54 TSH < 0.005 mlU/mL (0.270-4.200) L 06/08/19 02:54 Free T4 5.72 ng/dL (0.76-1.46) H 06/08/19 02:54 HCG, Qual Negative (Negative) 06/08/19 02:54 Active Medications - Current Medications Current Medications: Generic Name Dose Route Start Last Admin Trade Name Freq PRN Reason Stop Dose Admin Acetaminophen 650 mg 06/08/19 04:42 Tylenol PO Q4H PRN Pain MILD(1-3)/Fever >100.5/HICKMAN Enoxaparin Sodium 40 mg 06/09/19 10:00 Lovenox SUB-Q QDAY@1000 [facility] Hydrocortisone Sodium Succinate 100 mg 06/08/19 09:00 Solu-Cortef IV Q6H [facility] Esmolol HCl 2.5 gm in 250 mls @ 29.61 mls/hr 06/08/19 02:46 06/08/19 04:18 Brevibloc Drip 2.5gm/250ml IV 06/08/19 11:12 100 mcg/kg/min TITR ONE 59.22 mls/hr Titration Protocol 50 MCG/KG/MIN Sodium Chloride 1,000 mls @ 125 mls/hr 06/08/19 05:00 Nacl 0.45% 1000 Ml IV DIRECT HERB Ondansetron HCl 4 mg 06/08/19 04:42 06/08/19 06:18 Zofran IV 4 mg Q4H PRN Administration Nausea And Vomiting Sodium Chloride 10 ml 06/08/19 10:00 Sodium Chloride Flush Syringe 10 Ml IV BID [facility] Sodium Chloride 10 ml 06/08/19 04:42 Sodium Chloride Flush Syringe 10 Ml IV PRN PRN LINE FLUSH
[2019-06-08] MEDS: NACL 0.45% 1000 ML 1,000 ML IV SCH (07:39)
[2019-06-08] MEDS ORDERED: TYLENOL ONE (07:39)
[2019-06-08] MEDS ORDERED: NACL 0.45% 1000 ML 1,000 ML IV ONE ×2 (07:39→18:06)
[2019-06-08] MEDS ORDERED: SOLU-Medrol ONE ×3 (08:24→18:05)
[2019-06-08] MEDS ORDERED: ATIVAN ONE ×5 (08:25→22:08)
[2019-06-08] MEDS ORDERED: PROPYLTHIOURACIL PO SCH (09:00)
[2019-06-08] MEDS ORDERED: LOVENOX SUB-Q SCH ×2 (10:00)
[2019-06-08] MEDS ORDERED: LOVENOX SUB-Q ONE (10:44)
[2019-06-08] MEDS: SODIUM CHLORIDE FLUSH SYRINGE 10 ML IV SCH (10:50)
[2019-06-08] MEDS: BREVIBLOC DRIP 2.5GM/250ML 2.5 GM/250 ML BAG IV SCH ×3 (12:30→22:12)
[2019-06-08] MEDS ORDERED: ATIVAN IV PRN (16:07)
--- NOTE | 2019-06-08 16:13 | Consultation ---
History of Present Illness Consult date: 06/08/19 Requesting physician: ASTRID CANTU Reason for consult: dyspnea History of present illness: Pt. presented to ED with several days of generalized weakness, vomiting, diarrhea, chest pressure, shortness of breath, dizziness, and blurred vision. She has had fevers, anterior chest "burning". She is not on meds. She smokes THC. She reports anxiety and "panic attacks". Esmolol stopped earlier with increased anxiety and tachycardia. Active Medications Acetaminophen (Tylenol) 650 mg PO Q4H PRN PRN Reason: Pain MILD(1-3)/Fever >100.5/HICKMAN Last Admin: 06/08/19 07:38 Dose: 650 mg Documented by: Enoxaparin Sodium (Lovenox) 40 mg SUB-Q QDAY@1000 [facility] Hydrocortisone Sodium Succinate (Solu-Cortef) 50 mg IV Q6H HERB Sodium Chloride (Nacl 0.45% 1000 Ml) 1,000 mls @ 125 mls/hr IV DIRECT HERB Last Admin: 06/08/19 07:39 Dose: 125 mls/hr Documented by: Esmolol HCl (Brevibloc Drip 2.5gm/250ml) 2.5 gm in 250 mls @ 59.22 mls/hr IV TITR HERB; Protocol Last Admin: 06/08/19 12:30 Dose: 100 mcg/kg/min, 59.22 mls/hr Documented by: Lorazepam (Ativan) 0.5 mg IV Q4H PRN PRN Reason: Anxiety Methimazole (Tapazole) 20 mg PO Q12H HERB Ondansetron HCl (Zofran) 4 mg IV Q4H PRN PRN Reason: Nausea And Vomiting Last Admin: 06/08/19 06:18 Dose: 4 mg Documented by: Sodium Chloride (Sodium Chloride Flush Syringe 10 Ml) 10 ml IV BID HERB Last Admin: 06/08/19 10:50 Dose: 10 ml Documented by: Sodium Chloride (Sodium Chloride Flush Syringe 10 Ml) 10 ml IV PRN PRN PRN Reason: LINE FLUSH Past History Past Medical History: other (Ankylosing spondylitis, Asthma) Social history: smoking (THC), full code. denies: alcohol abuse, prescription drug abuse, IV drug use Family history: other (No pulm issues reported) Medications and Allergies Allergies Allergy/AdvReac Type Severity Reaction Status Date / Time No Known Allergies Allergy Verified 06/08/19 02:27 Home Medications Medication Instructions Recorded Confirmed Last Taken Type No Known Home Medications [No 06/08/19 06/08/19 Unknown History Reported Home Medications] Active Meds: Active Medications Acetaminophen (Tylenol) 650 mg PO Q4H PRN PRN Reason: Pain MILD(1-3)/Fever >100.5/HICKMAN Last Admin: 06/08/19 07:38 Dose: 650 mg Documented by: Enoxaparin Sodium (Lovenox) 40 mg SUB-Q QDAY@1000 [facility] Sodium Chloride (Nacl 0.45% 1000 Ml) 1,000 mls @ 125 mls/hr IV DIRECT HERB Last Admin: 06/08/19 07:39 Dose: 125 mls/hr Documented by: Esmolol HCl (Brevibloc Drip 2.5gm/250ml) 2.5 gm in 250 mls @ 59.22 mls/hr IV TITR HERB; Protocol Last Admin: 06/08/19 12:30 Dose: 100 mcg/kg/min, 59.22 mls/hr Documented by: Lorazepam (Ativan) 0.5 mg IV Q4H PRN PRN Reason: Anxiety Methimazole (Tapazole) 20 mg PO Q12H HERB Ondansetron HCl (Zofran) 4 mg IV Q4H PRN PRN Reason: Nausea And Vomiting Last Admin: 06/08/19 06:18 Dose: 4 mg Documented by: Sodium Chloride (Sodium Chloride Flush Syringe 10 Ml) 10 ml IV BID HERB Last Admin: 06/08/19 10:50 Dose: 10 ml Documented by: Sodium Chloride (Sodium Chloride Flush Syringe 10 Ml) 10 ml IV PRN PRN PRN Reason: LINE FLUSH Review of Systems All systems: negative Physical Examination Vital signs: Vital Signs Temp Pulse Resp BP Pulse Ox 97.9 F 155 H 18 141/84 99 06/08/19 02:27 06/08/19 02:27 06/08/19 02:27 06/08/19 02:27 06/08/19 02:27 General appearance: no acute distress, alert Eyes: non-icteric ENT: oropharynx moist Neck: supple Effort: normal Ascultation: Bilateral: clear Cardiovascular: regular rate and rhythm (no mrg) Gastrointestinal: normoactive bowel sounds, soft, non-tender, non-distended Integumentary: normal Extremities: no cyanosis, no edema, pink and warm Musculoskeletal: no deformities normal mental status, non-focal exam, pupils equal and round, CN II-XII normal anxious Results - Laboratory Findings CBC and BMP: 06/08/19 02:54 06/08/19 02:54 PT/INR, D-dimer PT 14.8 Sec. (12.2-14.9) 06/08/19 02:54 INR 1.19 (0.87-1.13) H 06/08/19 02:54 Abnormal lab findings: Abnormal Labs 06/08/19 06/08/19 06/08/19 02:54 02:54 02:54 MCH 26 L Lymph % (Auto) 45.4 H [place] % (Auto) 11.1 H INR 1.19 H Carbon Dioxide 18 L Creatinine 0.5 L Glucose 106 H Albumin TSH Free T4 06/08/19 06/08/19 02:54 02:54 MCH Lymph % (Auto) [place] % (Auto) INR Carbon Dioxide Creatinine Glucose Albumin 3.6 L TSH < 0.005 L Free T4 5.72 H - Diagnostic Findings Chest x-ray: report reviewed, image reviewed (clear lungs) Assessment and Plan Imp: 1. Hyperthyroidism w/ thyroid storm 2. Anxiety 3. Ankylosing spondylitis 4. Thyroid nodules Rec: 1. Agree w/ Methimazole PO 2. Decrease Solu-cortef 3. IVFs 4. Would consider changing Esmolol drip to PO Propranolol which could allow her to be down-graded to the floor; further f/u of nodules/thyroid levels will need to be done as an outpatient, and patient is aware that outpatient f/u is of utmost importance 5. DVT PPx Plan of care reviewed w/ patient, she understands/agrees
[2019-06-08] MEDS: ATIVAN IV PRN (20:32)
[2019-06-08] MEDS ORDERED: ATIVAN IV ONE (22:00)
[2019-06-08] MEDS ORDERED: MORPHINE IV ONE (22:00)
[2019-06-08] MEDS ORDERED: ZOFRAN ONE (22:08)
[2019-06-08] MEDS ORDERED: MORPHINE ONE (22:08)
[2019-06-09] MEDS: BREVIBLOC DRIP 2.5GM/250ML 2.5 GM/250 ML BAG IV SCH ×5 (00:06→10:34)
[2019-06-09] MEDS ORDERED: ATIVAN ONE ×2 (00:13→03:37)
[2019-06-09] MEDS: SODIUM CHLORIDE FLUSH SYRINGE 10 ML IV SCH ×3 (00:19→22:05)
[2019-06-09] MEDS: ATIVAN IV PRN ×6 (00:19→18:45)
[2019-06-09] MEDS ORDERED: NACL 0.45% 1000 ML 1,000 ML IV ONE (02:18)
[2019-06-09] MEDS ORDERED: ZOFRAN ONE (02:36)
[2019-06-09] MEDS: NACL 0.45% 1000 ML 1,000 ML IV SCH ×3 (02:42→19:25)
[2019-06-09] MEDS ORDERED: MORPHINE ONE ×3 (02:50→12:08)
[2019-06-09] MEDS ORDERED: ZOFRAN IV PRN (02:53)
[2019-06-09] MEDS: MORPHINE IV PRN ×2 (02:55→09:05)
[2019-06-09 05:53] LABS: Hematocrit 33.4 % (30.3-42.9); Hemoglobin 10.7 gm/dl (10.1-14.3); Lymphocytes # (Auto) 1.1 K/mm3 (1.2-5.4); Lymphocytes % (Auto) 7.5 % (13.4-35.0); Mean Corpuscular HGB Conc 32 % (30-34); Mean Corpuscular Volume 81 fl (79-97); Monocytes # (Auto) 0.9 K/mm3 (0.0-0.8); Platelet Count 240 K/mm3 (140-440); Red Blood Count 4.13 M/mm3 (3.65-5.03); Red Cell Distribution Width 13.1 % (13.2-15.2)
[2019-06-09 06:19] LABS: BUN/Creatinine Ratio 18; Blood Urea Nitrogen 7 mg/dL (7-17); Calcium 8.9 mg/dL (8.4-10.2); Hemolysis Index 3
[2019-06-09] MEDS ORDERED: MORPHINE IV ONE (12:00)
[2019-06-09] MEDS ORDERED: MORPHINE IV NR (12:00)
[2019-06-09] MEDS: LOVENOX SUB-Q SCH (12:07)
[2019-06-09] MEDS: INDERAL PO SCH ×2 (12:12→22:03)
--- NOTE | 2019-06-09 13:40 | Progress Note ---
Assessment and Plan Imp: 1. Hyperthyroidism w/ thyroid storm 2. Anxiety 3. Ankylosing spondylitis 4. Thyroid nodules Rec: 1. Agree w/ Methimazole PO; free T4 improving already 2. Stop steroids; probably worsening her anxiety/psych issues 3. IVFs 4. Change Esmolol to Propranolol 5. Ativan IV prn 6. Consider Psych eval. 7. Check UA 8. DVT PPx 9. Can go to floor if remains stable off Esmolol, and we would sign off once she is out of ICU Plan of care reviewed w/ patient, she understands/agrees Subjective Date of service: 06/09/19 Principal diagnosis: Thyroid storm Interval history: Severely anxious this AM, shaking, basically having a panic attack despite Ativa n and Morphine. Has innumerable complaints including SOB, chest and throat burning, shaking, burning on urination, flank pain, etc. She is tearful. Her vitals are stable on RA and Esmolol drip. Active Medications Acetaminophen (Tylenol) 650 mg PO Q4H PRN PRN Reason: Pain MILD(1-3)/Fever >100.5/HICKMAN Last Admin: 06/08/19 07:38 Dose: 650 mg Documented by: Enoxaparin Sodium (Lovenox) 40 mg SUB-Q QDAY@1000 [facility] Last Admin: 06/09/19 12:07 Dose: 40 mg Documented by: Sodium Chloride (Nacl 0.45% 1000 Ml) 1,000 mls @ 125 mls/hr IV DIRECT [facility] Last Admin: 06/09/19 11:18 Dose: 125 mls/hr Documented by: Lorazepam (Ativan) 2 mg IV Q3H PRN PRN Reason: Agitation Methimazole (Tapazole) 20 mg PO Q12H [facility] Ondansetron HCl (Zofran) 4 mg IV Q4H PRN PRN Reason: Nausea And Vomiting Last Admin: 06/08/19 06:18 Dose: 4 mg Documented by: Oxycodone/Acetaminophen (Percocet 5/325) 1 tab PO Q6H PRN PRN Reason: Pain, Moderate (4-6) Propranolol HCl (Inderal) 20 mg PO Q12HR [facility] Last Admin: 06/09/19 12:12 Dose: 20 mg Documented by: Quetiapine Fumarate (Seroquel) 50 mg PO QHS [facility] Last Admin: 06/09/19 12:07 Dose: 50 mg Documented by: Sodium Chloride (Sodium Chloride Flush Syringe 10 Ml) 10 ml IV BID HER[facility] Last Admin: 06/09/19 00:19 Dose: 10 ml Documented by: Sodium Chloride (Sodium Chloride Flush Syringe 10 Ml) 10 ml IV PRN PRN PRN Reason: LINE FLUSH Objective Vital Signs - 12hr 06/09/19 06/09/19 06/09/19 01:38 03:40 04:38 Temperature Pulse Rate 93 H 96 H Pulse Rate [ Left Radial] Pulse Rate [ Right Radial] Respiratory 21 22 Rate Blood Pressure 150/71 143/33 Blood Pressure 135/64 [Right] O2 Sat by Pulse 99 98 Oximetry 06/09/19 06/09/19 06/09/19 05:02 05:03 06:00 Temperature Pulse Rate 88 84 Pulse Rate [ 88 Left Radial] Pulse Rate [ 88 Right Radial] Respiratory 26 H 26 H 26 H Rate Blood Pressure 121/54 Blood Pressure 148/55 [Right] O2 Sat by Pulse 99 99 98 Oximetry 06/09/19 06/09/19 06/09/19 06:28 06:30 06:32 Temperature Pulse Rate 93 H 88 91 H Pulse Rate [ Left Radial] Pulse Rate [ Right Radial] Respiratory 21 20 Rate Blood Pressure 110/48 Blood Pressure 110/48 [Right] O2 Sat by Pulse 99 100 Oximetry 06/09/19 06/09/19 06/09/19 07:00 07:30 08:00 Temperature 98.1 F Pulse Rate 84 82 85 Pulse Rate [ Left Radial] Pulse Rate [ Right Radial] Respiratory 18 28 H 33 H Rate Blood Pressure 110/58 110/58 119/57 Blood Pressure [Right] O2 Sat by Pulse 98 97 99 Oximetry 06/09/19 06/09/19 08:30 12:12 Temperature Pulse Rate 81 95 H Pulse Rate [ Left Radial] Pulse Rate [ Right Radial] Respiratory 13 Rate Blood Pressure 130/70 137/83 Blood Pressure [Right] O2 Sat by Pulse 97 Oximetry Constitutional: no acute distress, alert Eyes: non-icteric ENT: oropharynx moist Neck: supple Effort: normal Ascultation: Bilateral: clear Cardiovascular: regular rate and rhythm (no mrg) Gastrointestinal: normoactive bowel sounds, soft, non-tender, non-distended Integumentary: normal Extremities: no cyanosis, no edema, pink and warm Neurologic: normal mental status, non-focal exam, pupils equal and round, CN II- XII normal Psychiatric: anxious CBC and BMP: 06/09/19 05:34 06/09/19 05:34 ABG, PT/INR, D-dimer: PT/INR, D-dimer PT 14.8 Sec. (12.2-14.9) 06/08/19 02:54 INR 1.19 (0.87-1.13) H 06/08/19 02:54 Abnormal lab findings: Abnormal Labs 06/08/19 06/08/19 06/08/19 02:54 02:54 02:54 WBC MCH 26 L RDW Lymph % (Auto) 45.4 H [place] % (Auto) 11.1 H Lymph # [place] # Seg Neutrophils % Seg Neutrophils # INR 1.19 H Carbon Dioxide 18 L Creatinine 0.5 L Glucose 106 H Albumin TSH Free T4 06/08/19 06/08/19 06/09/19 02:54 02:54 05:34 WBC 14.3 H MCH 26 L RDW 13.1 L Lymph % (Auto) 7.5 L [place] % (Auto) Lymph # 1.1 L [place] # 0.9 H Seg Neutrophils % 86.5 H Seg Neutrophils # 12.4 H INR Carbon Dioxide Creatinine Glucose Albumin 3.6 L TSH < 0.005 L Free T4 5.72 H 06/09/19 06/09/19 05:34 05:34 WBC MCH RDW Lymph % (Auto) [place] % (Auto) Lymph # [place] # Seg Neutrophils % Seg Neutrophils # INR Carbon Dioxide 18 L Creatinine 0.4 L Glucose 181 H Albumin TSH Free T4 3.62 H Chest x-ray: report reviewed, image reviewed
[2019-06-09] MEDS: ZOFRAN IV PRN (19:25)
[2019-06-09] MEDS: TAPAZOLE PO SCH ×2 (19:43→20:58)
--- NOTE | 2019-06-09 19:50 | Progress Note ---
Assessment and Plan - Patient Problems (1) Asthma Current Visit: Yes Status: Acute Plan to address problem: Nebulizes oxygen as indicated. Stable for now. (2) Thyroid storm Current Visit: Yes Status: Acute Plan to address problem: Present this did not appear to be all thyroid storm. Patient does have fatigue and that's about it and now. No heat intolerance at this time pulse is very well controlled. Tapazole has been adequate without any difficulty. At present we'll wean esmolol drip and start propranolol. Transfer to regular floor. I think if we control her underlying anxiety which is severe we control her tremors. (3) Ankylosing spondylitis Current Visit: Yes Status: Chronic (4) Anxiety Current Visit: Yes Status: Acute Plan to address problem: Anxiety and panic attacks. I think this is the main issue. Patient has been very stressed at home cannot stop shaking. Patient given Ativan 2 mg every 3 hours has not touched patient. We'll give short trial of antipsychotic C we did give patient some rest with Seroquel and some much needed treatment for anxiety. This should treat both as well will follow-up with psychiatry consult. Patient will need this. This underlying etiology I did not feel is totally thyroid storm. Patient has no fever. No altered mental status only some fatigue. Memory loss the rhabdo. History Interval history: At present patient seen shaking uncontrollably. Crying uncontrollably. Assess significant other at bedside if she was like this at home and she says she has been on several times and just tries to keep herself calm. Patient is shaking crying holding hands of staff and her significant girlfriend. No new events overnight. Pain and weakness is all over. Hospitalist Physical - Constitutional Vitals: Temp Pulse Resp BP Pulse Ox 97.7 F 88 26 H 124/58 100 06/09/19 16:00 06/09/19 14:05 06/09/19 14:05 06/09/19 13:50 06/09/19 19:12 General appearance: Present: mild distress. Absent: severe distress, well- nourished, cachectic, obese, disheveled, malodorous - EENT Eyes: Present: PERRL, EOM intact. Absent: scleral icterus, conjunctival injection, exopthalmos, miosis, mydriasis, discharge ENT: hearing intact, clear oral mucosa, dentition normal, no oropharyngeal erythema - Neck Neck: Present: supple, normal ROM - Respiratory Respiratory: bilateral: CTA - Cardiovascular Rhythm: regular Heart Sounds: Absent: systolic murmur, diastolic murmur - Extremities Extremities: no ischemia, pulses intact, pulses symmetrical, No edema, normal temperature, normal color Peripheral Pulses: within normal limits - Abdominal General gastrointestinal: soft, non-tender, non-distended, normal bowel sounds, hypoactive bowel sounds, absent bowel sounds, hepatomegaly, splenomegaly - Integumentary Integumentary: Present: clear, warm, dry - Psychiatric Psychiatric: appropriate mood/affect, intact judgment & insight, memory intact - Neurologic Neurologic: CNII-XII intact, focal deficits, moves all extremities, other (clear panic attack H is states has not slept in 3 days. Patient very tired ages.) Results - Labs CBC & Chem 7: 06/09/19 05:34 06/09/19 05:34 Labs: Laboratory Last Values WBC 14.3 K/mm3 (4.5-11.0) H 06/09/19 05:34 RBC 4.13 M/mm3 (3.65-5.03) 06/09/19 05:34 Hgb 10.7 gm/dl (10.1-14.3) 06/09/19 05:34 Hct 33.4 % (30.3-42.9) 06/09/19 05:34 MCV 81 fl (79-97) 06/09/19 05:34 MCH 26 pg (28-32) L 06/09/19 05:34 MCHC 32 % (30-34) 06/09/19 05:34 RDW 13.1 % (13.2-15.2) L 06/09/19 05:34 Plt Count 240 K/mm3 (140-440) 06/09/19 05:34 Lymph % (Auto) 7.5 % (13.4-35.0) L 06/09/19 05:34 [place] % (Auto) 6.0 % (0.0-7.3) 06/09/19 05:34 Eos % (Auto) 0.0 % (0.0-4.3) 06/09/19 05:34 Baso % (Auto) 0.0 % (0.0-1.8) 06/09/19 05:34 Lymph # 1.1 K/mm3 (1.2-5.4) L 06/09/19 05:34 [place] # 0.9 K/mm3 (0.0-0.8) H 06/09/19 05:34 Eos # 0.0 K/mm3 (0.0-0.4) 06/09/19 05:34 Baso # 0.0 K/mm3 (0.0-0.1) 06/09/19 05:34 Seg Neutrophils % 86.5 % (40.0-70.0) H 06/09/19 05:34 Seg Neutrophils # 12.4 K/mm3 (1.8-7.7) H 06/09/19 05:34 PT 14.8 Sec. (12.2-14.9) 06/08/19 02:54 INR 1.19 (0.87-1.13) H 06/08/19 02:54 APTT 27.4 Sec. (24.2-36.6) 06/08/19 02:54 Sodium 138 mmol/L (137-145) 06/09/19 05:34 Potassium 3.7 mmol/L (3.6-5.0) 06/09/19 05:34 Chloride 106.9 mmol/L (98-107) 06/09/19 05:34 Carbon Dioxide 18 mmol/L (22-30) L 06/09/19 05:34 17 mmol/L 06/09/19 05:34 BUN 7 mg/dL (7-17) 06/09/19 05:34 0.4 mg/dL (0.7-1.2) L 06/09/19 05:34 Estimated GFR > 60 ml/min 06/09/19 05:34 18 % 06/09/19 05:34 Glucose 181 mg/dL (65-100) H 06/09/19 05:34 Calcium 8.9 mg/dL (8.4-10.2) 06/09/19 05:34 0.40 mg/dL (0.1-1.2) 06/08/19 02:54 < 0.2 mg/dL (0-0.2) 06/08/19 02:54 0.2 mg/dL 06/08/19 02:54 AST 21 units/L (5-40) 06/08/19 02:54 ALT 21 units/L (7-56) 06/08/19 02:54 75 units/L (35-129) 06/08/19 02:54 < 0.010 ng/mL (0.00-0.029) 06/08/19 Unknown 7.5 g/dL (6.3-8.2) 06/08/19 02:54 3.6 g/dL (3.9-5) L 06/08/19 02:54 0.9 % 06/08/19 02:54 TSH < 0.005 mlU/mL (0.270-4.200) L 06/08/19 02:54 Free T4 3.62 ng/dL (0.76-1.46) H 06/09/19 05:34 HCG, Qual Negative (Negative) 06/08/19 02:54 Active Medications - Current Medications Current Medications: Generic Name Dose Route Start Last Admin Trade Name Freq PRN Reason Stop Dose Admin Acetaminophen 650 mg 06/08/19 04:42 06/08/19 07:38 Tylenol PO 650 mg Q4H PRN Administration Pain MILD(1-3)/Fever >100.5/HICKMAN Enoxaparin Sodium 40 mg 06/09/19 10:00 06/09/19 12:07 Lovenox SUB-Q 40 mg QDAY@1000 HERB Administration Sodium Chloride 1,000 mls @ 125 mls/hr 06/08/19 05:00 06/09/19 19:25 Nacl 0.45% 1000 Ml IV 125 mls/hr DIRECT HERB Administration Lorazepam 2 mg 06/09/19 13:00 06/09/19 18:45 Ativan IV 2 mg Q3H PRN Administration Agitation Methimazole 20 mg 06/09/19 08:00 06/09/19 19:43 Tapazole PO Not Given Q12H HERB Ondansetron HCl 4 mg 06/08/19 04:42 06/09/19 19:25 Zofran IV 4 mg Q4H PRN Administration Nausea And Vomiting Oxycodone/Acetaminophen 1 tab 06/09/19 11:12 Percocet 5/325 PO Q6H PRN Pain, Moderate (4-6) Propranolol HCl 20 mg 06/09/19 12:00 06/09/19 12:12 Inderal PO 20 mg Q12HR HERB Administration Quetiapine Fumarate 50 mg 06/09/19 12:00 06/09/19 12:07 Seroquel PO 50 mg QHS HERB Administration Sodium Chloride 10 ml 06/08/19 10:00 06/09/19 19:41 Sodium Chloride Flush Syringe 10 Ml IV Not Given BID HERB Sodium Chloride 10 ml 06/08/19 04:42 Sodium Chloride Flush Syringe 10 Ml IV PRN PRN LINE FLUSH
[2019-06-09] MEDS: PERCOCET 5/325 PO PRN (22:04)
[2019-06-10] MEDS: ATIVAN IV PRN (03:37)
[2019-06-10] MEDS: NACL 0.45% 1000 ML 1,000 ML IV SCH (03:37)
[2019-06-10 08:01] VITALS: BP 131/67
[2019-06-10] MEDS: TAPAZOLE PO SCH (10:39)
[2019-06-10] MEDS: INDERAL PO SCH (10:40)
[2019-06-10] MEDS: LOVENOX SUB-Q SCH (10:40)
[2019-06-10] MEDS: PERCOCET 5/325 PO PRN (10:42)
[2019-06-10] MEDS: SODIUM CHLORIDE FLUSH SYRINGE 10 ML IV SCH (10:43)
--- NOTE | 2019-06-10 12:46 | Discharge Summary ---
Providers - Providers Date of Admission: 06/08/19 04:42 Date of discharge: 06/10/19 Attending physician: DARION MOREJON 06/08/19 04:42 Consult to Physician [CONS] Routine Comment: Consulting Provider: HARMAN SHIN Physician Instructions: Reason For Exam: cc 06/09/19 11:14 Consult to Physician [CONS] Routine Comment: Consulting Provider: LUTHER PEARSON Physician Instructions: Reason For Exam: anxiety [facility] Hospital[facility] Condition: Good Hospital course: Patient originally presented with generalized weakness fatigue and chest tightness asthma ankylosing spondylitis found to have TSH of less than 0.05. Tachycardia. Patient was started on Tapazole and therapeutically do well. Patient's free T4 decreased from 5-3. Patient's pulse was well controlled. Initially started on esmolol drip no longer needed esmolol drip. Thyroid storm resolved. Patient to remain on Tapazole and follow currency counter. Patient understands importance of follow-up with endocrinology. She also had thyroid ultrasound which showed thyroid mass which require biopsy. Patient will need a repeat ultrasound off Tapazole then obtained a biopsy. Patient be discharged home on Tapazole 20 mg twice a day. Need RAIU at outpatient endocrinology continue metoprolol. Patient hospital course complicated by profound anxiety. Patient had not slept in several days. She has a lot of issues with insurance 6 children and limited findings. This makes [place] anxious. She typically was self-medicating with marijuana but does not have at this time. Patient was given Seroquel for depression and anxiety and did have some success. Patient resting comfortably now up to Seroquel will be discharged with immediate follow- up with endocrinology. Disposition: DC- TO HOME OR SELFCARE - Discharge Diagnoses (1) Asthma Status: Resolved (2) Thyroid storm Status: Acute Comment: Thyroid storm has resolved. Patient to remain on Tapazole 20 mg twice a day in propranolol as well. Heart rate well controlled. Will also treat patient's anxiety. (3) Ankylosing spondylitis Status: Chronic Comment: Patient really takes NSAIDs and just gets rid of pain. We'll treat with some pain medications prior to follow-up. (4) Anxiety Status: Acute Comment: Anxiety is advanced. We'll treat patient with when necessary benzodiazepine. Core Measure Documentation - Palliative Care Palliative Care/ Comfort Measures: Not Applicable - Core Measures Any of the following diagnoses?: none Exam - Constitutional Vitals: Temp Pulse Resp BP Pulse Ox 97.4 F L 68 18 131/67 97 06/10/19 07:59 06/10/19 10:00 06/10/19 07:59 06/10/19 07:59 06/10/19 07:59 Plan Activity: no restrictions Weight Bearing Status: Full Weight Bearing Diet: low cholesterol Follow up with: NEVAEH ACE MD [Primary Care Provider] - 7 Days Prescriptions: Propranolol [Inderal] 20 mg PO Q12HR #60 tablet oxyCODONE /ACETAMINOPHEN [Percocet 5/325 mg] 1 tab PO Q6H PRN #30 tablet PRN Reason: Pain, Moderate (4-6) QUEtiapine [SEROquel] 50 mg PO QHS #20 tablet methIMAzole [Tapazole] 20 mg PO Q12H #30 tablet
--- NOTE | 2019-06-10 15:36 | Progress Note ---
Assessment and Plan - Patient Problems (1) Anxiety Current Visit: Yes Status: Acute (2) Thyroid storm Current Visit: Yes Status: Acute (3) Ankylosing spondylitis Current Visit: Yes Status: Chronic (4) Asthma Current Visit: Yes Status: Resolved Subjective Principal diagnosis: Thyroid storm Interval history: friend at bedside, no new compliants Objective Vital Signs - 12hr 06/10/19 06/10/19 06/10/19 03:47 07:59 10:00 Temperature 98.0 F 97.4 F L Pulse Rate 89 68 68 Respiratory 18 18 Rate Blood Pressure 145/79 131/67 O2 Sat by Pulse 99 97 Oximetry 06/10/19 12:47 Temperature Pulse Rate Respiratory Rate Blood Pressure O2 Sat by Pulse 100 Oximetry Constitutional: no acute distress, alert Eyes: non-icteric ENT: oropharynx moist Neck: supple Effort: normal Ascultation: Bilateral: clear Cardiovascular: regular rate and rhythm (no mrg) Gastrointestinal: normoactive bowel sounds, soft, non-tender, non-distended Integumentary: normal Extremities: no cyanosis, no edema, pink and warm Neurologic: normal mental status, non-focal exam, pupils equal and round, CN II- XII normal Psychiatric: anxious CBC and BMP: 06/09/19 05:34 06/09/19 05:34 ABG, PT/INR, D-dimer: PT/INR, D-dimer PT 14.8 Sec. (12.2-14.9) 06/08/19 02:54 INR 1.19 (0.87-1.13) H 06/08/19 02:54 Abnormal lab findings: Abnormal Labs 06/08/19 06/08/19 06/08/19 02:54 02:54 02:54 WBC MCH 26 L RDW Lymph % (Auto) 45.4 H [place] % (Auto) 11.1 H Lymph # [place] # Seg Neutrophils % Seg Neutrophils # INR 1.19 H Carbon Dioxide 18 L Creatinine 0.5 L Glucose 106 H Albumin TSH Free T4 06/08/19 06/08/19 06/09/19 02:54 02:54 05:34 WBC 14.3 H MCH 26 L RDW 13.1 L Lymph % (Auto) 7.5 L [place] % (Auto) Lymph # 1.1 L [place] # 0.9 H Seg Neutrophils % 86.5 H Seg Neutrophils # 12.4 H INR Carbon Dioxide Creatinine Glucose Albumin 3.6 L TSH < 0.005 L Free T4 5.72 H 06/09/19 06/09/19 06/10/19 05:34 05:34 06:02 WBC MCH RDW Lymph % (Auto) [place] % (Auto) Lymph # [place] # Seg Neutrophils % Seg Neutrophils # INR Carbon Dioxide 18 L Creatinine 0.4 L Glucose 181 H Albumin TSH Free T4 3.62 H 3.29 H
[2019-06-16 07:18] LABS: Anti-TPO Antibodies SEE SCANNED RESULT; Thyroglobulin Antibodies SEE SCANNED RESULT
== END 2019-06-10 17:30 | disposition home or self-care (01) | DRG 645 ==
LOC: ED 02:19 → SUATTDRO 02:19 → CC1 04:42 → 4A 06-09 20:36
PROVIDERS: ADMIT Internal Medicine; ATTEND Internal Medicine
DX: E05.21 Thyrotoxicosis with toxic multinodular goiter with thyrotoxic crisis or storm (principal); M45.9 Ankylosing spondylitis of unspecified sites in spine; F41.9 Anxiety disorder, unspecified; J45.909 Unspecified asthma, uncomplicated; Z82.49 Family history of ischemic heart disease and other diseases of the circulatory system
CPT/HCPCS: 36415; 71045; 76536; 80048; 80076; 84439; 84443; 84480; 84484; 84703; 85025; 85610; 85730; 86800; 93005; 93010; 94760; 96361; 96374; 96375; G0378; J1650; J1720; J2060; J2270; J2405; J2930; J7030